=== PATIENT | male | born 1985 | race Caucasian/White ===

== ENCOUNTER → 2018-01-05 | Outpatient (CLI) | payer BC ==
[~2018-01-05] MED LIST: NO HOME MEDICATIONS
[2018-01-05 09:22] LABS: COLLECTION METHOD CLEAN CATCH
[2018-01-05 09:33] LABS: PH 5 (5-8); SQUAMOUS EPITHELIAL 0-2 /hpf; URINE APPEARANCE Clear; URINE BACTERIA None Seen /hpf; URINE BILIRUBIN Negative (NEGATIVE); URINE BLOOD Negative (NEGATIVE); URINE COLOR Yellow; URINE GLUCOSE Negative (NEGATIVE); URINE KETONE Negative (NEGATIVE); URINE LEUKOCYTE ESTERASE Negative (NEGATIVE); URINE NITRATE Negative (NEGATIVE); URINE PROTEIN(semi-quant) Negative (NEGATIVE); URINE RBC None Seen /hpf; URINE UROBILINOGEN Negative (NEGATIVE)
== END ==
LOC: COL.RAD 08:38
PROVIDERS: Family Medicine
DX: R07.89 Other chest pain (principal); R53.83 Other fatigue; F17.210 Nicotine dependence, cigarettes, uncomplicated

== ENCOUNTER 2018-04-25 05:45 | Day surgery (SDC) | payer BC ==
[~2018-04-25] VITALS: Ht 177.8 cm; Wt 87.5 kg
[2018-04-25 06:13] VITALS: BP 112/78; PULSE 57; TEMP 98
[2018-04-25 08:48] VITALS: BP 110/71; PULSE 63; TEMP 97.1
[2018-04-25] MEDS ORDERED: COLACE 100100 MG/CAP PO (08:51)
[2018-04-25] MEDS ORDERED: PERCOCET 325 MG1 TA2 PO (08:51)
[2018-04-25] MEDS ORDERED: MOTRIN 600600 MG/TAB PO (08:51)
[2018-04-25 09:03] VITALS: BP 109/73; PULSE 49
[2018-04-25 09:18] VITALS: BP 101/62; PULSE 50
[2018-04-25 09:33] VITALS: BP 108/66; PULSE 49
== END 2018-04-25 09:52 | disposition home or self-care (01) ==
LOC: SDCO 05:45
DX: K42.9 Umbilical hernia without obstruction or gangrene (principal); F17.220 Nicotine dependence, chewing tobacco, uncomplicated
CPT/HCPCS: C1781; J0690; J1100; J1885; J2405; J2704; J3010; J7120